=== PATIENT | female | born 1970 | race Caucasian/White ===

== ENCOUNTER 2017-07-09 12:07 | Emergency (ER) | payer OTHER ==
[~2017-07-09] VITALS: Ht 160 cm; Wt 69.0 kg
[~2017-07-09 12:07] MED LIST: BENADRYL25 MG PO; CARISOPRODOL 3350 MG PO; ENBREL50 MG/1 M1 SQ; FOLIC ACID1 MG PO; KADIAN30 MG PO; KEFLEX500 MG PO; LEVOTHYROXINE 0.1 MG PO; LOXAPINE50 MG PO; METHOTREXATE 22.5 MG INJECTION; NORCO 5-325 TA1 EACH PO; OTEZLA30 MG PO; PERCOCET 10-321 EACH PO; PREMARIN; PREMARIN1.25 MG PO; TENORMIN50 MG PO; XANAX1 MG PO
[2017-07-09] MEDS ORDERED: ZYPREXA 10 MG T10 MG PO (12:22)
[2017-07-09] MEDS ORDERED: HYDROCODONE-AP1 EAC6 PO (13:24)
[2017-07-09 15:57] VITALS: BP 129/98
== END 2017-07-09 15:59 | disposition home or self-care (01) ==
LOC: ER 12:07
DX: S92.212A Displaced fracture of cuboid bone of left foot, initial encounter for closed fracture (principal); X50.0XXA Overexertion from strenuous movement or load, initial encounter; Y93.89 Activity, other specified; Y92.89 Other specified places as the place of occurrence of the external cause; Y99.8 Other external cause status; M79.7 Fibromyalgia; F32.9 Major depressive disorder, single episode, unspecified; K21.9 Gastro-esophageal reflux disease without esophagitis; Z90.710 Acquired absence of both cervix and uterus; Z88.2 Allergy status to sulfonamides; Z88.1 Allergy status to other antibiotic agents

== ENCOUNTER 2018-08-03 08:43 | Inpatient (IN) | payer OTHER ==
[~2018-08-03] VITALS: Ht 160 cm; Wt 77.6 kg
--- NOTE | ~2018-08-03 | EKG ---
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
--- NOTE | ~2018-08-03 | 2DMMODE ---
"[facility] [address] [place] [address] 2 D/M-MODE ECHOCARDIOGRAM Name: TERESA VILLA Room #: 356-P ADM IN M.R.#: [id number] Admission: 08/03/18 Attend Phys: Boby Thorpe MD Discharge: Date of : 74 Date of Service: 08/05/18 1301 Report #: [id number] THIS REPORT FOR: //name// APPROVED REPORT Study performed: 08/05/2018 11:49:19 EXAM: Comprehensive 2D, Doppler, and color-flow Echocardiogram Patient Location: Bedside Room #: 356 Status: routine BSA: 1.79 HR: 84 bpm BP: 145/95 mmHg Rhythm: NSR Other Information Study Quality: Adequate Indications COPD Dyspnea Tachycardia 2D Dimensions RVDd: 31.58 mm IVSd: 9.00 (7-11mm) LVOT Diam: 22.11 (18-24mm) LVDd: 52.39 mm PWd: 10.26 (7-11mm) Ascending Ao: 33.60 (22-36mm) LVDs: 36.51 (25-40mm) Aortic Root: 33.29 mm IVC: 23.00 mm Volumes Left Atrial Volume (Systole) Single Plane 4CH: 48.44 mL Single Plane 2CH: 67.69 mL LA ESV Index: 39.00 mL/m2 Aortic Valve AoV Peak Jimmy.: 1.19 m/s AO Peak Gr.: 5.63 mmHg LVOT Max P.72 mmHg LVOT Max V: 0.96 m/s VEE Vmax: 3.12 cm2 Mitral Valve E/A Ratio: 1.1 [facility] [address] [place] [address] 2 D/M-MODE ECHOCARDIOGRAM Name: DEMETRIO VILLAIA ROSALIE Room #: [address] [place] [address]#: [id number] Admission: 08/03/18 Attend Phys: Boby Thorpe MD Discharge: Date of : 74 Date of Service: 08/05/18 1301 Report #: [id number] MV Decel. Time: 132.45 ms MV E Max Jimmy.: 0.85 m/s MV A Jimmy.: 0.80 m/s MV PHT: 38.41 ms IVRT: 69.20 ms Pulmonary Valve PV Peak Jimmy.: 0.92 m/s PV Peak Gr.: 3.41 mmHg Pulmonary Vein P Vein S: 0.81 m/s P Vein A: 0.41 m/s P Vein D: 0.41 m/s P Vein A Dur.: 79.6 msec P Vein S/D Ratio: 1.98 Tricuspid Valve TR Peak Jimmy.: 2.34 m/s TR Peak Gr.: 21.90 mmHg PA Pressure: 32.00 mmHg Left Ventricle The left ventricle is normal size. There is normal LV segmental wall motion. There is normal left ventricular wall thickness. The left ventricular systolic function is normal. The left ventricular ejection fraction is within the normal range. LVEF is 55-60%. The left ventricular diastolic function is normal. Right Ventricle The right ventricle is normal size. The right ventricular systolic function is normal. Atria Left atrium is dilated. The right atrium size is normal. Aortic Valve The aortic valve is normal in structure. No aortic regurgitation is present. There is no aortic valvular stenosis. Mitral Valve The mitral valve is normal in structure. Trace mitral regurgitation. No evidence of mitral valve stenosis. Tricuspid Valve The tricuspid valve is normal in structure. There is trace tricuspid regurgitation. Estimated PAP 32 mmHg. There [place] [address] 2 D/M-MODE ECHOCARDIOGRAM Name[facility] Room #: [facility]-P [facility] IN M.R.#: [id number] Admission: 08/03/18 Attend Phys: Boby Thorpe MD Discharge: Date of : 74 Date of Service: 08/05/18 1301 Report #: [id number] Pulmonic Valve The pulmonary valve is normal in structure. There is no pulmonic valvular regurgitation. Great Vessels The aortic root is normal in size. IVC is dilated and collapses >50% with inspiration. Pericardium No pericardial effusion. <Conclusion> The left ventricle is normal size. LVEF is 55-60%. Left atrium is dilated. The aortic valve is normal in structure. The mitral valve is normal in structure. Trace mitral regurgitation. The tricuspid valve is normal in structure. There is trace tricuspid regurgitation. Estimated PAP 32 mmHg. There is mild pulmonary hypertension. The pulmonary valve is normal in structure. No pericardial effusion. <ELECTRONICALLY SIGNED> By: Jorge Luis Finnegan MD 08/05/18 1301 1301 1301 Jorge Luis Finnegan MD /INF"
[2018-08-03 08:43] VITALS: BP 148/82
[~2018-08-03 08:43] MED LIST changes: +HYDROCODONE-AP1 EAC6 PO; +ZYPREXA 10 MG T10 MG PO
[2018-08-03 09:34] LABS: ABSOLUTE NEUTROPHILS 4.9 thou/uL (1.4-8.2); BASOPHILS 0.5 % (0.0-2.0); EOSINOPHILS 1.1 % (0.0-3.0); HEMATOCRIT 42.5 % (37.0-47.0); HEMOGLOBIN 14.3 gm/dL (12.0-15.0); LYMPHOCYTES 32.3 % (24.0-44.0); MCH 25.4 pg (26.0-34.0); MCHC 33.7 g/dL (28.0-37.0); MCV 75.4 fL (80.0-100.0); MONOCYTES 7.9 % (1.0-8.0); PLATELET COUNT 409 thou/uL (150-400); POLYS 58.2 % (36.0-66.0); RBC 5.63 mil/uL (4.20-5.00); RDW 17.8 % (10.5-14.5); WBC 8.5 thou/uL (4.0-11.0)
[2018-08-03 09:42] LABS: ANION GAP 11 mmol/L (7-16); BUN 7 mg/dL (7-18); CALCIUM 10.3 mg/dL (8.5-10.1); CHLORIDE 100 mmol/L (98-107); CO2 26 mmol/L (21-32); CREATININE 1.1 mg/dL (0.6-1.0); GLUCOSE 133 mg/dL (74-106); SODIUM 137 mmol/L (136-145)
[2018-08-03 09:46] LABS: POTASSIUM 2.6 mmol/L (3.5-5.1)
[2018-08-03 09:51] LABS: TROPONIN-I <0.06 ng/mL (<0.06)
[2018-08-03 12:56] LABS: CALCIUM 9.2 mg/dL (8.5-10.1); POTASSIUM 3.1 mmol/L (3.5-5.1)
[2018-08-03 13:32] VITALS: BP 141/85
[2018-08-03 15:23] VITALS: BP 132/87
[2018-08-03] MEDS ORDERED: ZYRTEC10 M4 PO (16:22)
[2018-08-03] MEDS ORDERED: ARMOUR THYROID120 M1 PO (16:23)
[2018-08-03] MEDS ORDERED: LOXAPINE25 MG PO (16:26)
[2018-08-03] MEDS ORDERED: PROAIR HFA8.5 GM INH (16:27)
[2018-08-03] MEDS ORDERED: ADVAIR 250-501 EACH INH (16:27)
[2018-08-03] MEDS ORDERED: TOPAMAX 25 MG T25 M1 PO (16:28)
[2018-08-03] MEDS ORDERED: TRAZODONE HCL100 MG PO (16:29)
[2018-08-03 19:34] VITALS: BP 156/93
[2018-08-04 04:13] VITALS: BP 139/98
[2018-08-04 05:53] LABS: CALCIUM 9.6 mg/dL (8.5-10.1); POTASSIUM 3.8 mmol/L (3.5-5.1)
[2018-08-04 08:05] VITALS: BP 105/58
[2018-08-04 13:24] VITALS: BP 134/69
[2018-08-04 20:10] VITALS: BP 131/66
[2018-08-05 05:00] VITALS: BP 132/76
[2018-08-05 07:41] VITALS: BP 145/95
[2018-08-05 15:04] VITALS: BP 142/69
[2018-08-05 21:07] VITALS: BP 135/82
[2018-08-06 03:35] VITALS: BP 142/88
[2018-08-06 06:19] LABS: ABSOLUTE NEUTROPHILS 13.3 thou/uL (1.4-8.2); BASOPHILS 0.1 % (0.0-2.0); HEMATOCRIT 37.4 % (37.0-47.0); LYMPHOCYTES 10.3 % (24.0-44.0); MCH 24.5 pg (26.0-34.0); MCHC 31.7 g/dL (28.0-37.0); MCV 77.4 fL (80.0-100.0); MONOCYTES 2.6 % (1.0-8.0); PLATELET COUNT 396 thou/uL (150-400); RBC 4.83 mil/uL (4.20-5.00); WBC 15.3 thou/uL (4.0-11.0)
[2018-08-06 06:30] LABS: CALCIUM 9.8 mg/dL (8.5-10.1); CREATININE 0.9 mg/dL (0.6-1.0); HEMOGLOBIN 11.9 gm/dL (12.0-15.0); POTASSIUM 5.1 mmol/L (3.5-5.1)
[2018-08-06 07:54] VITALS: BP 136/90
[2018-08-06] MEDS ORDERED: ACCUNEB SO1.25 MG/1 INH (11:51)
[2018-08-06] MEDS ORDERED: DOXYCYCLINE 10100 MG PO (11:58)
[2018-08-06] MEDS ORDERED: PEPCID20 MG PO (11:58)
[2018-08-06] MEDS ORDERED: PREDNISONE 10 M10 M1 PO (11:58)
[2018-08-06] MEDS ORDERED: MUCINEX600 MG PO (12:07)
[2018-08-06] MEDS ORDERED: NEBULIZER MISCELL (12:08)
[2018-08-06 14:49] VITALS: BP 136/90
== END 2018-08-06 16:45 | disposition home or self-care (01) | DRG 202 ==
LOC: ER 08:43 → EROBS 13:15 → 3W 13:15 → ENTRNSPT 08-06 16:06 → 3W 08-06 16:45
PROVIDERS: Hospitalist; Student in an Organized Health Care Education/Training Program
DX: J20.9 Acute bronchitis, unspecified (principal); J44.1 Chronic obstructive pulmonary disease with (acute) exacerbation; J45.901 Unspecified asthma with (acute) exacerbation; J44.0 Chronic obstructive pulmonary disease with (acute) lower respiratory infection; K21.9 Gastro-esophageal reflux disease without esophagitis; F32.9 Major depressive disorder, single episode, unspecified; E87.6 Hypokalemia; F17.210 Nicotine dependence, cigarettes, uncomplicated; F12.90 Cannabis use, unspecified, uncomplicated; R00.0 Tachycardia, unspecified; Z79.899 Other long term (current) drug therapy; Z90.710 Acquired absence of both cervix and uterus; Z88.1 Allergy status to other antibiotic agents; Z88.2 Allergy status to sulfonamides; Z88.7 Allergy status to serum and vaccine
CPT/HCPCS: 10779; 10879

== ENCOUNTER 2019-06-04 13:59 | Emergency (ER) | payer OTHER ==
[~2019-06-04] VITALS: Ht 162.6 cm; Wt 72.6 kg
[~2019-06-04 13:59] MED LIST changes: +ACCUNEB SO1.25 MG/1 INH; +ADVAIR 250-501 EACH INH; +ARMOUR THYROID120 M1 PO; +DOXYCYCLINE 10100 MG PO; +LOXAPINE25 MG PO; +MUCINEX600 MG PO; +NEBULIZER MISCELL; +PEPCID20 MG PO; +PREDNISONE 10 M10 M1 PO; +PROAIR HFA8.5 GM INH; +TOPAMAX 25 MG T25 M1 PO; +TRAZODONE HCL100 MG PO; +ZYRTEC10 M4 PO
[2019-06-04 15:29] LABS: URINE BILIRUBIN NEGATIVE (Negative); URINE BLOOD NEGATIVE (Negative); URINE CLARITY SL CLOUDY; URINE COLOR YELLOW; URINE GLUCOSE-RANDOM* NEGATIVE (Negative); URINE KETONES NEGATIVE (Negative); URINE LEUKOCYTES-REFLEX NEGATIVE (Negative); URINE PROTEIN (DIPSTICK) NEGATIVE (Negative); URINE UROBILINOGEN 0.2 E.U./dl (0.2-1.0)
[2019-06-04 15:37] LABS: URINE NITRITE-REFLEX POSITIVE (Negative)
[2019-06-04 15:40] LABS: BACTERIA-REFLEX >30 Many /HPF (None Seen); CASTS None Seen /LPF (None Seen); CRYSTALS None Seen /LPF (None Seen); SQUAMOUS None Seen /LPF (0-3); URINE RBC 3-10 Few /HPF (0-2); URINE WBC-REFLEX 6-15 Few /HPF (0-5)
[2019-06-04] MEDS ORDERED: COMBIVENT RESPIM4 GM INH (15:54)
[2019-06-04] MEDS ORDERED: TOPAMAX 100 MG100 MG PO (15:57)
[2019-06-04 17:07] LABS: ABSOLUTE NEUTROPHILS 5.4 thou/uL (1.4-8.2); BASOPHILS 1.1 % (0.0-2.0); EOSINOPHILS 0.9 % (0.0-3.0); HEMATOCRIT 42.7 % (37.0-47.0); HEMOGLOBIN 13.8 gm/dL (12.0-15.0); LYMPHOCYTES 27.2 % (24.0-44.0); MCH 26.2 pg (26.0-34.0); MCHC 32.4 g/dL (28.0-37.0); MCV 80.9 fL (80.0-100.0); MONOCYTES 5.2 % (1.0-8.0); PLATELET COUNT 405 thou/uL (150-400); POLYS 65.6 % (36.0-66.0); RBC 5.28 mil/uL (4.20-5.00); RDW 15.4 % (10.5-14.5); WBC 8.2 thou/uL (4.0-11.0)
[2019-06-04] MEDS ORDERED: MOBIC15 MG PO (17:12)
[2019-06-04] MEDS ORDERED: CEFDINIR300 MG PO (17:12)
[2019-06-04 17:14] LABS: CALCIUM 9.6 mg/dL (8.5-10.1)
[2019-06-04 17:20] LABS: ALBUMIN 3.6 g/dL (3.4-5.0); TOTAL BILIRUBIN 0.2 mg/dL (<0.1-1.0); TOTAL PROTEIN 7.3 g/dL (6.4-8.2)
[2019-06-04 18:21] VITALS: BP 168/93
== END 2019-06-04 18:43 | disposition home or self-care (01) ==
LOC: ER 13:59
PROVIDERS: Emergency Medicine
DX: N39.0 Urinary tract infection, site not specified (principal); M79.7 Fibromyalgia; F32.9 Major depressive disorder, single episode, unspecified; K21.9 Gastro-esophageal reflux disease without esophagitis; J44.9 Chronic obstructive pulmonary disease, unspecified; F41.9 Anxiety disorder, unspecified; I10 Essential (primary) hypertension; K58.9 Irritable bowel syndrome, unspecified; Z88.1 Allergy status to other antibiotic agents; Z88.2 Allergy status to sulfonamides; Z88.7 Allergy status to serum and vaccine; Z87.442 Personal history of urinary calculi

== ENCOUNTER 2020-02-09 13:52 | Emergency (ER) | payer OTHER ==
[~2020-02-09] VITALS: Ht 162.6 cm; Wt 75.3 kg
[~2020-02-09 13:52] MED LIST changes: +CEFDINIR300 MG PO; +COMBIVENT RESPIM4 GM INH; +MOBIC15 MG PO; +TOPAMAX 100 MG100 MG PO
[2020-02-09 14:20] LABS: ABSOLUTE NEUTROPHILS 7.1 thou/uL (1.4-8.2); EOSINOPHILS 1.6 % (0.0-3.0); HEMATOCRIT 41.3 % (37.0-47.0); HEMOGLOBIN 13.7 gm/dL (12.0-15.0); LYMPHOCYTES 25.8 % (24.0-44.0); MCH 27.4 pg (26.0-34.0); MCHC 33.2 g/dL (28.0-37.0); MCV 82.6 fL (80.0-100.0); MONOCYTES 6.5 % (1.0-8.0); PLATELET COUNT 346 thou/uL (150-400); POLYS 65.1 % (36.0-66.0); RBC 4.99 mil/uL (4.20-5.00); RDW 15.9 % (10.5-14.5); WBC 10.9 thou/uL (4.0-11.0)
[2020-02-09 14:56] LABS: ANION GAP 9 mmol/L (7-16); BUN 13 mg/dL (7-18); CALCIUM 8.8 mg/dL (8.5-10.1); CHLORIDE 105 mmol/L (98-107); CO2 26 mmol/L (21-32); GLUCOSE 134 mg/dL (74-106); POTASSIUM 3.8 mmol/L (3.5-5.1); SODIUM 140 mmol/L (136-145)
[2020-02-09 15:06] LABS: ALBUMIN 3.5 g/dL (3.4-5.0); SGOT 19 U/L (15-37); SGPT 14 U/L (30-65); TOTAL BILIRUBIN 0.2 mg/dL (0.2-1.0); TROPONIN-I <0.06 ng/mL (<0.06)
[2020-02-09 15:20] LABS: AMP/METHAMP POSITIVE (Negative); BARBITURATES Negative (Negative); BENZODIAZEPINES Negative (Negative); COCAINE Negative (Negative); METHADONE Negative (Negative); OPIATES Negative (Negative); PCP Negative (Negative)
[2020-02-09 16:24] VITALS: BP 115/55
--- NOTE | 2020-02-10 08:16 | EKG ---
[facility] [place] [address] [address] [place] [address] ELECTROCARDIOGRAM REPORT Name: TERESA VILLA [facility] [id number] Admission: 02/09/20 Attend Phys: Discharge: 02/09/20 Date of : 74 Report #: [id number] THIS REPORT FOR: cc: Lucille Fagan Christine L. 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[facility] : 1970 Requested By: Connor Pro Order Number: [id number] MD: John Rolon Measurements Intervals [place] Rate: 87 P: 65 PA: 159 QRS: 48 QRSD: 97 T: 38 QT: 376 QTc: 453 Interpretive Statements Sinus rhythm No significant abnormality Compared to ECG 08/03/2018 09:21:06 Sinus tachycardia no longer present Electronically Signed On 02-10-2020 8:14:24 CDT by John Rolon [email or web address] <ELECTRONICALLY SIGNED> By: John Rolon MD, [facility] 02/10/20 0814 1405 1405 John Rolon MD, [facility] /EPI
== END 2020-02-09 16:44 | disposition home or self-care (01) ==
LOC: ER 13:52
PROVIDERS: Emergency Medicine
DX: F15.10 Other stimulant abuse, uncomplicated (principal); R55 Syncope and collapse; M79.7 Fibromyalgia; K21.9 Gastro-esophageal reflux disease without esophagitis; J44.9 Chronic obstructive pulmonary disease, unspecified; I10 Essential (primary) hypertension; Z88.2 Allergy status to sulfonamides; Z88.7 Allergy status to serum and vaccine; Z88.1 Allergy status to other antibiotic agents; Z87.442 Personal history of urinary calculi; Z79.899 Other long term (current) drug therapy

== ENCOUNTER 2020-02-27 18:44 | Emergency (ER) | payer OTHER ==
[~2020-02-27] VITALS: Ht 162.6 cm; Wt 76.2 kg
[2020-02-27 20:00] LABS: URINE BILIRUBIN NEGATIVE (Negative); URINE BLOOD NEGATIVE (Negative); URINE CLARITY CLEAR; URINE COLOR YELLOW; URINE GLUCOSE-RANDOM* NEGATIVE (Negative); URINE KETONES NEGATIVE (Negative); URINE LEUKOCYTES-REFLEX NEGATIVE (Negative); URINE PROTEIN (DIPSTICK) NEGATIVE (Negative); URINE SPECIFIC GRAVITY 1.025 (1.005-1.035); URINE UROBILINOGEN 0.2 E.U./dl (0.2-1.0)
[2020-02-27 20:02] LABS: AMP/METHAMP Negative (Negative); BARBITURATES Negative (Negative); BENZODIAZEPINES Negative (Negative); COCAINE Negative (Negative); METHADONE Negative (Negative); OPIATES Negative (Negative); PCP Negative (Negative)
[2020-02-27 20:07] LABS: URINE NITRITE-REFLEX POSITIVE (Negative)
[2020-02-27 20:10] LABS: SQUAMOUS >10 Many /LPF (0-3)
[2020-02-27 20:11] LABS: BACTERIA-REFLEX >30 Many /HPF (None Seen); CASTS None Seen /LPF (None Seen); CRYSTALS None Seen /LPF (None Seen)
[2020-02-27 20:12] LABS: URINE RBC None Seen /HPF (0-2); URINE WBC-REFLEX 0-5 Rare /HPF (0-5)
[2020-02-27] MEDS ORDERED: KEFLEX500 M1 PO (21:04)
[2020-02-27 21:13] VITALS: BP 141/78
--- NOTE | 2020-02-28 11:02 | EKG ---
[facility] [address] ELECTROCARDIOGRAM REPORT Name: TERESA VILLA [id number] Admission: 02/27/20 Attend Phys: Discharge: 02/27/20 Date of : 74 Report #: [id number] THIS REPORT FOR: cc: Adolph Goyal MD, Alberto MD Couchonnal,Vinnie Swartz MD ~ THIS REPORT FOR: //name// [facility] ED Test Date: 2020-02-27 Test Time: 19:44:28 Pat Name: TERESA VILLA Department: Room: Gender: F Doctor Of Radiology: [place] [id number] : 1970 Requested By: Nava Mcclain Order Number: [id number] MD: Vinnie Colon Measurements Intervals [place] Rate: 80 P: 71 VT: 166 QRS: 53 QRSD: 94 T: 34 QT: 381 QTc: 440 Interpretive Statements Sinus rhythm Probable left atrial enlargement Compared to ECG 02/09/2020 14:05:29 No significant changes Electronically Signed On 02-28-2020 11:01:43 CDT by Vinnie Colon [email or web address] <ELECTRONICALLY SIGNED> By: Vinnie Colon MD 02/28/20 1101 43 43 Vinnie Colon MD /EPI
== END 2020-02-27 21:16 | disposition home or self-care (01) ==
LOC: ER 18:44
PROVIDERS: Physician Assistant
DX: F41.0 Panic disorder [episodic paroxysmal anxiety] (principal); N39.0 Urinary tract infection, site not specified; R06.00 Dyspnea, unspecified; F17.210 Nicotine dependence, cigarettes, uncomplicated; F15.10 Other stimulant abuse, uncomplicated; F19.20 Other psychoactive substance dependence, uncomplicated; I10 Essential (primary) hypertension; K21.9 Gastro-esophageal reflux disease without esophagitis; J44.9 Chronic obstructive pulmonary disease, unspecified; M79.7 Fibromyalgia; M19.90 Unspecified osteoarthritis, unspecified site; F32.9 Major depressive disorder, single episode, unspecified; Z87.442 Personal history of urinary calculi; Z90.710 Acquired absence of both cervix and uterus; Z98.51 Tubal ligation status; Z88.2 Allergy status to sulfonamides; Z88.1 Allergy status to other antibiotic agents; Z88.7 Allergy status to serum and vaccine; Z79.899 Other long term (current) drug therapy

== ENCOUNTER 2020-03-29 13:20 | Emergency (ER) | payer OTHER ==
[~2020-03-29] VITALS: Ht 162.6 cm; Wt 76.7 kg
[~2020-03-29 13:20] MED LIST changes: +KEFLEX500 M1 PO
[2020-03-29] MEDS ORDERED: TRAMADOL 50 MG50 MG PO (14:10)
[2020-03-29] MEDS ORDERED: ESKALITH CR450 MG PO (14:10)
[2020-03-29] MEDS ORDERED: PANTOPRAZOLE SO40 M1 PO (14:11)
[2020-03-29] MEDS ORDERED: AMANTADINE100 M1 PO (14:11)
[2020-03-29] MEDS ORDERED: ATENOLOL 25 MG25 M1 PO ×2 (14:12→14:13)
[2020-03-29 14:48] LABS: ABSOLUTE NEUTROPHILS 4.1 thou/uL (1.4-8.2); BASOPHILS 0.6 % (0.0-2.0); EOSINOPHILS 4.1 % (0.0-3.0); HEMATOCRIT 38.6 % (37.0-47.0); HEMOGLOBIN 12.8 gm/dL (12.0-15.0); LYMPHOCYTES 35.6 % (24.0-44.0); MCH 28.1 pg (26.0-34.0); MCHC 33.2 g/dL (28.0-37.0); MCV 84.7 fL (80.0-100.0); MONOCYTES 4.6 % (1.0-8.0); PLATELET COUNT 354 thou/uL (150-400); POLYS 55.1 % (36.0-66.0); RBC 4.56 mil/uL (4.20-5.00); RDW 15.4 % (10.5-14.5); WBC 7.4 thou/uL (4.0-11.0)
[2020-03-29 15:06] LABS: ALBUMIN 3.6 g/dL (3.4-5.0); ANION GAP 9 mmol/L (7-16); BUN 8 mg/dL (7-18); CALCIUM 8.9 mg/dL (8.5-10.1); CHLORIDE 104 mmol/L (98-107); CO2 26 mmol/L (21-32); CREATININE 0.8 mg/dL (0.6-1.0); GLUCOSE 111 mg/dL (74-106); LIPASE 142 U/L (73-393); SGOT 21 U/L (15-37); SGPT 17 U/L (30-65); SODIUM 139 mmol/L (136-145); TOTAL BILIRUBIN 0.2 mg/dL (0.2-1.0); TOTAL PROTEIN 7.3 g/dL (6.4-8.2); TROPONIN-I <0.06 ng/mL (<0.06)
[2020-03-29 15:08] LABS: POTASSIUM 2.7 mmol/L (3.5-5.1)
[2020-03-29 16:26] VITALS: BP 164/89
[2020-03-29] MEDS ORDERED: BENTYL 10 MG CA10 M1 PO (17:07)
[2020-03-29] MEDS ORDERED: LOPERAMIDE 2 MG2 M1 PO (17:07)
--- NOTE | 2020-03-30 07:39 | EKG ---
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[facility] : 1970 Requested By: Isabel Orourke Order Number: [id number] MD: John Rolon Measurements Intervals [place] Rate: 109 P: 52 GA: 164 QRS: 23 QRSD: 103 T: 30 QT: 361 QTc: 487 Interpretive Statements Sinus tachycardia Probable left atrial enlargement RSR' in V1 or V2, right VCD Borderline prolonged QT interval Compared to ECG 02/27/2020 19:44:28 QT interval has lengthened Electronically Signed On 03-30-2020 7:39:35 CDT by John Rolon [email or web address] <ELECTRONICALLY SIGNED> By: John Rolon MD, [facility] 03/30/20 0739 1448 1448 John Rolon MD, [facility] /EPI
== END 2020-03-29 18:42 | disposition home or self-care (01) ==
LOC: ER 13:20
PROVIDERS: Student in an Organized Health Care Education/Training Program
DX: K52.9 Noninfective gastroenteritis and colitis, unspecified (principal); R11.2 Nausea with vomiting, unspecified; R06.02 Shortness of breath; R07.9 Chest pain, unspecified; Z59.0 Homelessness; Z98.51 Tubal ligation status; Z90.711 Acquired absence of uterus with remaining cervical stump; M79.7 Fibromyalgia; F32.9 Major depressive disorder, single episode, unspecified; K21.9 Gastro-esophageal reflux disease without esophagitis; J44.9 Chronic obstructive pulmonary disease, unspecified; F41.9 Anxiety disorder, unspecified; L40.50 Arthropathic psoriasis, unspecified; I10 Essential (primary) hypertension; F17.210 Nicotine dependence, cigarettes, uncomplicated; Z87.442 Personal history of urinary calculi; Z79.899 Other long term (current) drug therapy; Z88.1 Allergy status to other antibiotic agents; Z88.2 Allergy status to sulfonamides; Z88.7 Allergy status to serum and vaccine

== ENCOUNTER 2020-07-19 01:38 | Emergency (ER) | payer OTHER ==
[~2020-07-19] VITALS: Ht 162.6 cm; Wt 75.8 kg
[~2020-07-19 01:38] MED LIST changes: +AMANTADINE100 M1 PO; +ATENOLOL 25 MG25 M1 PO; +BENTYL 10 MG CA10 M1 PO; +ESKALITH CR450 MG PO; +LOPERAMIDE 2 MG2 M1 PO; +PANTOPRAZOLE SO40 M1 PO; +TRAMADOL 50 MG50 MG PO
[2020-07-19] MEDS ORDERED: IPRAT-ALBUT 0.5-3 ML INH (01:45)
[2020-07-19] MEDS ORDERED: MOBIC15 MG PO (03:24)
[2020-07-19 03:35] VITALS: BP 155/98
== END 2020-07-19 03:42 | disposition home or self-care (01) ==
LOC: ER 01:38
DX: S86.912A Strain of unspecified muscle(s) and tendon(s) at lower leg level, left leg, initial encounter (principal); M79.7 Fibromyalgia; F32.9 Major depressive disorder, single episode, unspecified; K21.9 Gastro-esophageal reflux disease without esophagitis; J44.9 Chronic obstructive pulmonary disease, unspecified; F41.9 Anxiety disorder, unspecified; L40.50 Arthropathic psoriasis, unspecified; I10 Essential (primary) hypertension; F17.210 Nicotine dependence, cigarettes, uncomplicated; Z87.442 Personal history of urinary calculi; Z79.899 Other long term (current) drug therapy; Z88.1 Allergy status to other antibiotic agents; Z88.2 Allergy status to sulfonamides; Z88.7 Allergy status to serum and vaccine; W19.XXXA Unspecified fall, initial encounter; Y93.89 Activity, other specified; Y92.89 Other specified places as the place of occurrence of the external cause; Y99.8 Other external cause status

== ENCOUNTER 2021-04-17 13:44 | Emergency (ER) | payer OTHER ==
[~2021-04-17] VITALS: Ht 167.6 cm; Wt 77.1 kg
[~2021-04-17 13:44] MED LIST changes: +IPRAT-ALBUT 0.5-3 ML INH
[2021-04-17 15:38] LABS: ABSOLUTE NEUTROPHILS 3.6 thou/uL (1.4-8.2); BASOPHILS 0.8 % (0.0-2.0); EOSINOPHILS 0.6 % (0.0-3.0); HEMATOCRIT 43.3 % (37.0-47.0); HEMOGLOBIN 14.2 gm/dL (12.0-15.0); LYMPHOCYTES 35.6 % (24.0-44.0); MCHC 32.9 g/dL (28.0-37.0); MCV 85.1 fL (80.0-100.0); PLATELET COUNT 249 thou/uL (150-400); RBC 5.09 mil/uL (4.20-5.00); RDW 14.3 % (10.5-14.5); WBC 6.6 thou/uL (4.0-11.0)
[2021-04-17 15:54] LABS: CALCIUM 9.7 mg/dL (8.5-10.1); CREATININE 1.1 mg/dL (0.6-1.0); POTASSIUM 3.2 mmol/L (3.5-5.1)
[2021-04-17] MEDS ORDERED: ZPAK PO (16:30)
[2021-04-17] MEDS ORDERED: ONDANSETRON HCL4 M2 PO (16:30)
[2021-04-17 17:40] VITALS: BP 151/94
== END 2021-04-17 17:42 | disposition home or self-care (01) ==
LOC: ER 13:44
PROVIDERS: Nurse Practitioner
DX: U07.1 COVID-19 (principal); F32.9 Major depressive disorder, single episode, unspecified; K21.9 Gastro-esophageal reflux disease without esophagitis; J44.9 Chronic obstructive pulmonary disease, unspecified; F41.9 Anxiety disorder, unspecified; M19.90 Unspecified osteoarthritis, unspecified site; J45.909 Unspecified asthma, uncomplicated; I10 Essential (primary) hypertension; F17.210 Nicotine dependence, cigarettes, uncomplicated; Z90.721 Acquired absence of ovaries, unilateral; Z90.710 Acquired absence of both cervix and uterus; Z98.51 Tubal ligation status; Z79.899 Other long term (current) drug therapy; Z88.1 Allergy status to other antibiotic agents; Z88.6 Allergy status to analgesic agent; Z88.7 Allergy status to serum and vaccine; Z88.2 Allergy status to sulfonamides

== ENCOUNTER → 2021-07-20 | Outpatient (CLI) | payer OTHER ==
[~2021-07-20] MED LIST changes: +ONDANSETRON HCL4 M2 PO; +ZPAK PO
== END ==
LOC: RAD 12:13
PROVIDERS: ATTEND Internal Medicine Pulmonary Disease
DX: R06.02 Shortness of breath (principal)